=== PATIENT | female | born 1980 | race Caucasian/White ===

== ENCOUNTER 2021-10-17 09:21 | Emergency (ER) | payer MEDICARE, MEDICAID ==
[~2021-10-17] VITALS: Ht 167.6 cm; Wt 64.0 kg
[2021-10-17 09:24] VITALS: BP 110/80
[2021-10-17] MEDS ORDERED: ONDANSETRON HCL 4MG/2ML INJ IV STA (09:33)
[2021-10-17] MEDS ORDERED: MORPHINE SULFATE 4 MG/ML CPJ (NOT FOR IM USE) IV STA (09:33)
[2021-10-17] MEDS ORDERED: SODIUM CHLORIDE 0.9% 1,000 ML IV ONE (09:45)
[2021-10-17] MEDS ORDERED: LOPERAMIDE HCL 2MG CAPSULE PO ONE (10:00)
[2021-10-17 10:04] LABS: BASOPHILS % 0.2 % (0.0-2.0); EOSINOPHILS % 1.9 % (0.0-5.0); HEMATOCRIT. 36.6 % (36.0-48.0); HEMOGLOBIN. 12.4 g/dL (12.0-16.0); LYMPHOCYTES % 16.7 % (20.0-50.0); MEAN CORPUSCULAR HEMOGLOBIN 32.1 pg (28.0-32.0); MEAN PLATELET VOLUME 8.8 fl (7.4-10.4); MONOCYTES % 10.1 % (2.0-8.0); NEUTROPHILS % 71.1 % (40.0-76.0); PLATELET 231 x1000/uL (130-400); RED BLOOD CELL COUNT 3.85 mill/uL (4.2-5.4); RED CELL DISTRIBUTION WIDTH 14.7 % (11.6-14.6)
[2021-10-17 10:11] LABS: CHLORIDE 111 mEq/L (98-107)
[2021-10-17] MEDS ORDERED: IMOD MT (10:57)
[2021-10-17 11:07] LABS: HCG SCREEN NEGATIVE
[2021-10-17] MEDS ORDERED: LOPERAMIDE HCL 2MG CAPSULE PO SCH (11:30)
[2021-10-17] MEDS ORDERED: ONDANSETRON HCL 4MG/2ML INJ IV SCH (11:45)
== END 2021-10-17 12:52 | disposition home or self-care (01) ==
LOC: ER 09:48
DX: R19.7 Diarrhea, unspecified (principal)
CPT/HCPCS: 36415; 80053; 83690; 84703; 85025; 96374; 99283; J2405; J7030